=== PATIENT | male | born 1960 | race Caucasian/White ===

== ENCOUNTER 2017-02-28 14:18 | Inpatient (IN) ==
[~2017-02-28 14:18] MED LIST: PROPOFOL 200 MG/20 ML VIAL IV ONE; ROCURONIUM 100 MG/10 ML VIAL IV ONE
[2017-02-28] MEDS ORDERED: SODIUM CHLORIDE 0.9% 1,000 ML IV STA ×3 (14:20→15:20)
[2017-02-28] MEDS ORDERED: ETOMIDATE 20 MG/10 ML VIAL IV ONE ×2 (14:23→16:40)
[2017-02-28] MEDS ORDERED: VECURONIUM 10 MG VIAL IV ONE ×4 (14:24→16:40)
[2017-02-28] MEDS ORDERED: PROPOFOL 1,000 MG/100 ML BOTTLE IV ONE (14:28)
[2017-02-28] MEDS ORDERED: SUCCINYLCHOLINE 200 MG/10 ML VIAL IV ONE (14:28)
[2017-02-28] MEDS ORDERED: PANTOPRAZOLE 40 MG VIAL IV ONE (14:29)
[2017-02-28] MEDS: PROPOFOL 1,000 MG/100 ML BOTTLE IV SCH ×3 (14:35→22:02)
--- NOTE | 2017-02-28 14:50 | XRay Report ---
XR chest 1V Indication: ET tube placement Comparison: None Technique: Single frontal view of the chest. Findings: Endotracheal tube tip approximately 2 cm above the radu. Borderline heart size. Low lung volumes with bronchovascular crowding. Mild linear left midlung atelectasis. Visualized osseous and surrounding soft tissue structures demonstrate no acute abnormality. IMPRESSION: As above. PROCEDURE INTERPRETED AT [facility] DEPARTMENT OF RADIOLOGY Final Report Signed by: Dr Shmuel Pulido
[2017-02-28] MEDS ORDERED: CALCIUM CHLORIDE 1,000 MG/10 ML SYRINGE IV STA (15:04)
--- NOTE | 2017-02-28 15:04 | Emergency Department Note ---
Luly Ferro Hilary, am scribing for, and in the presence of, Andi Chatman MD 14: 57. Lurdes Ferro James D, MD, personally performed the services described in this documentation, ascribed by Yamilex Mauricio in my presence, and it is both accurate and complete 504 . Arrival - Arrival Limitations: No Limitations Source: Significant other (), EMS - History of Present Illness HPI Narrative: Pt is a 56 y/o male brought into the ED via EMS with c/o syncope and low blood pressure. Pts gives the history once the patient was intubated. She states that he has been having sinus trouble for about a week and felt so bad today that he decided to go to the Dr. While at the Dr he fell out while talking and became unresponsive. Once he was in the ED being brought to his room he started to vomit blood. Pt was extremely diaphoretic and lethargic upon arrival. Onset (ago): minute(s) Severity: severe Quality: other Allergies/Adverse Reactions: Allergies Allergy/AdvReac Type Severity Reaction Status Date / Time No Known Allergies Allergy Unverified 02/28/17 14:50 Home Medications: Home Medications Medication Instructions Recorded Confirmed Type No Known Home Medications [No 02/28/17 02/28/17 History Known Home Medications] Review of System - Review of System ROS unobtainable: due to endotracheal tube (Vomiting blood) 12 point system: reviewed and no additional remarkable complaints except as stated - Review of System Constitutional: Present: diaphoresis, other (Pale) Medical,Surgical,& Family Hx - Social History Smoking Status: Never smoker Frequency of Alcohol Use: None Type of Drug Use: None Marital Status: Lives With:: Spouse Functional capacity: independent ambulation Exam Vital Signs: Vital Signs Temperature 99.1 F 03/01/17 08:00 Pulse Rate 61 03/01/17 09:00 Respiratory Rate 15 03/01/17 13:00 Blood Pressure 113/78 03/01/17 09:00 O2 Sat by Pulse Oximetry 96 03/01/17 09:00 GENERAL: This is a this acutely ill appearing white male was placed on the gurney in room 8 after presentation from EMS. Patient is in extremis. Patient arrived by EMS from the scene of a local clinic where patient had a syncopal episode and was noted to be hypotensive. EMS had begun dopamine in route. And also began IV fluids. VITAL SIGNS: Reviewed HEENT: Head is atraumatic normocephalic. Pupils are equal round to light. Conjunctiva are pale. Blood is present in the oropharynx. Blood is present on the gurney around his head. NECK: Neck is soft and supple without tenderness. There are no masses. There is no lymphadenopathy. LUNGS: Lungs are clear to auscultation. Chest rises symmetrically. There is no chest wall tenderness. CV: Rapid rate regular rhythm. ABDOMEN: Abdomen is soft, nontender to palpation. There are no abdominal abnormal masses palpated. There is no organomegaly. Bowel sounds are present and active. SKIN: Diaphoretic, cool to touch.. EXTREMITIES: Patient moves all extremities.. NEUROLOGIC: Awake alert and oriented 4. Cranial nerves II through XII are grossly intact. Motor is 5 over 5 in all extremities bilaterally. Course Course Narrative: Upon patient's arrival he was placed on the rcedar hill and IVs were obtained. Patient was immediately given etomidate and vecuronium and intubated with an 8.0 endotracheal tube. Tube placement was confirmed by auscultation, condensation in the tube, color change monitor, and absence of breath sounds over epigastrium. Patient was begun on massive IV fluid infusion. O- blood was obtained and was given by level 1 infuser. Patient had trauma line placed in the right femoral vein without difficulty. Patient was also given 1 amp of calcium chloride and 1 unit of single donor platelets. - Consultations Consultation #1: Discussed with hospitalist. Patient will be admitted to their service. Procedures - Central Line Placement Right Femoral Consent Obtained: verbal consent Time Out Performed: Yes Patient Placed on Monitor/Pulse Ox: Yes MD Prep: mask, gown, gloves Central Line Prep: Povidone-Iodine 1% Local Anesthetic: lidocaine 1% Amount of anesthesia used (mL): 4 Ultrasound Used for Placement: No Central Line Lumen Inserted: triple Post Procedure: sutured in place, good blood return, all ports aspirated, flushed, capped, sterile dressing applied Post Procedure X-Ray: tip of catheter in good position Patient Tolerated Procedure: well Complications: none - Intubation Time out performed: Yes sedative: Etomidate Mg Given: 20 paralytic: Vecuronium Mg Given: 10 (Patient was also given succinylcholine 200 mg IV) Laryngoscope: fiber optic video scope ET Tube Size: 8 ET Tube Uncuffed: No Tube Secured Depth (cm): 24 Tube Secured Location: lips Tube Placement Confirmation: visualized tube passing through cords, equal breath sounds bilaterally, no breath sounds over epigastrium, confirmation detector color change Patient Tolerated Procedure: well Intubation Complications: none Results - Labs CBC & BMP: 03/01/17 04:45 02/28/17 14:59 Lab Results: I have reviewed the patients labs Labs: Laboratory Tests 02/28/17 15:00 ABG pH 7.319 L ABG pO2 186.7 H ABG HCO3 18.8 L ABG Total CO2 19.9 L ABG Base Excess -6.6 L - EKG EKG results: interpreted by ERMD - Diagnostic Findings Procedure: Abdominal x-ray: image reviewed by me, Chest x-ray: image reviewed by me (Chest x-ray reveals endotracheal tube at the tip of the radu. This will be retracted.) Critical Care Time Critical Care Time: Yes Total Critical Care Time: 90 Attestation: Patient had intubation massive transfusions of 4 units of packed red blood cells , calcium chloride IV, 4 units of FFP, single donor platelets in the emergency department. Patient also had initial vent settings written and his vent was managed while in the emergency department. Disposition Clinical Impression: Massive upper GI bleed, Hypovolemic shock Case discussed with: patient, patient's family Disposition: Still a Patient Time of Disposition: 15:04
[2017-02-28] MEDS ORDERED: SODIUM CHLORIDE 0.9% 250 ML IV PRN ×2 (15:05)
[2017-02-28 15:09] LABS: Allen Test Positive; Pt O2 Delivery Device Ventilator
[2017-02-28 15:10] LABS: ABG Base Excess -6.6 MMOL/L (-2.5-2.5); ABG HCO3 18.8 MMOL/L (20-26); ABG Oxygen Saturation 98.9 % (95-100); ABG PCO2 37.4 MM HG (35-48); ABG PH 7.319 (7.35-7.45); ABG PO2 186.7 MM HG (80-95); ABG TCO2 19.9 MMOL/L (23-27)
[2017-02-28] MEDS ORDERED: PANTOPRAZOLE INJ 80 MG in SODIUM CHLORIDE 0.9% 100 ML IV ONE (15:11)
[2017-02-28] MEDS ORDERED: CALCIUM CHLORIDE 1,000 MG/10 ML SYRINGE IV ONE (15:12)
[2017-02-28] MEDS ORDERED: MIDAZOLAM 100 MG in SODIUM CHLORIDE 0.9% 80 ML IV SCH (15:30)
--- NOTE | 2017-02-28 15:53 | Hospitalist History & Physical ---
Assessment and Plan - Time spent with patient Time spent with patient: Less than 30 minutes (1) Hypovolemic shock Status: Acute Assessment and plan: The patient will be admitted to ICU. We will consult pulmonary and GI to assist during the clinical encounter. We will volume resuscitate this patient with fluids and blood products. Current Visit: Yes (2) Upper GI bleed Status: Acute Assessment and plan: Hemoglobin and hematocrit are stable at 14.8 and 40.7, however I feel that due to the massive amount of blood loss during the episodes of vomiting that this will drop. He has already been transfused 2 units of PRBCs and 1 unit of platelets in the ED. we will obtain serial H&H's every 63 and transfuse as needed. We have started PPIs and DVT prophylaxis. Current Visit: Yes History of Present Illness Chief complaint: Syncope and hypotension History of present illness: This is a 56-year-old male that presented to the ED at [facility] on this afternoon via EMS for evaluation of hypotension and syncope. The patient has no known medical or surgical history reported. Apparently the patient presented to his primary care physician for evaluation of cold and sinus symptoms 1 week. He was sitting in the waiting room preparing to be seen when he suddenly passed out. The episode was witnessed by the office staff who then in turn called 911 for emergency assistance. At the time of EMS arrival, the patient was noted to be diaphoretic in both hypotensive. Dopamine was started in route to support his blood pressure. Upon arrival to the ED, the patient had a large episode of bloody emesis. He was noted to be very lethargic and his hypotension persisted despite the use of dopamine. He was emergently intubated and placed on mechanical ventilation for airway protection. His is at bedside; she was serve as historian. His reports that the patient is normally very healthy, does not take any medications, and does not see a doctor on a regular basis. She reports that the patient had an onset of upper respiratory symptoms on last week. She reports that he attempted to self medicate himself using an over the counter agent, Mucinex. She reports that she saw him on this morning and that he told her that he was feeling slightly better. She reports that she encouraged him to seek medical attention, however at that time he refused. Shortly thereafter, she reports that that her called her at work and told her that he had changed his mind and that he would indeed go and see a doctor. She reports that she was actually speaking with him while he was in the doctor's appointment and that he was his normal state at that time. Shortly thereafter the syncopal episode, she was notified by the staff of her status and she came to the hospital. His denies any alcohol or illicit drug use. She denies any recent aspirin or products containing aspirin use. After brief discussion with Dr. Chatman and Dr. Levin, the patient will be admitted to the hospitalist services for continuation of care. We will consult GI and pulmonary to assist during the clinical encounter. Home Medications Medication Instructions Recorded Confirmed Type No Known Home Medications [No 02/28/17 02/28/17 History Known Home Medications] Allergies Allergy/AdvReac Type Severity Reaction Status Date / Time No Known Allergies Allergy Unverified 02/28/17 14:50 Medical,Surgical,& Family Hx - Social History Smoking Status: Never smoker Frequency of Alcohol Use: None Type of Drug Use: None ROS unobtainable: due to endotracheal tube Exam - Constitutional Vitals: Period Temp Pulse Resp BP Sys/Rueda Pulse Ox Last 24 Hr 97.5 F 62 14-20 120/85 97 General appearance: over weight - Head Head exam: Present: normal inspection, normocephalic, atraumatic - Eye Eye exam: Present: EOMI. Absent: conjunctival injection, nystagmus Pupils: Present: DEANN, normal accommodation - ENT ENT exam: Present: normal exam, normal external ear exam, normal oropharynx - Neck Neck exam: Present: normal inspection. Absent: lymphadenopathy, meningismus, tenderness, thyromegaly - Respiratory Respiratory exam: Absent: clear to auscultation bilaterally, rales, rhonchi, stridor, wheezes - Cardiovascular Cardiovascular exam: Present: regular rate and rhythm. Absent: carotid bruit, diastolic murmur, gallop, JVD, rubs, systolic murmur - GI/Abdominal GI/Abdominal exam: Present: normal bowel sounds, soft, other (NG tube in place) - Extremities Exam Extremities exam: Present: normal inspection, normal capillary refill, full ROM. Absent: edema - Back Exam Back exam: Present: normal inspection - Neurological Exam Neurological exam: Present: altered - Psychiatric Psychiatric exam: Present: other (sedated) - Skin Skin exam: Present: warm, dry Results - Labs CBC & BMP: 02/28/17 14:59 02/28/17 14:59 Lab Results: I have reviewed the past 24 hour labs
--- NOTE | 2017-02-28 16:03 | Gastrointestinal Consult Note ---
Assessment and Plan (1) Upper GI bleed Status: Acute Assessment and plan: 02/28-Sudden onset of bright red emesis with hypotenstion requiring intubation. Total of 3 liters IVFs, and 4 units PRBC transfused with further plasma/ platlets pending. Labwork is pending at present time. For emergent EGD today. Plan and addendum to follow by Dr Castro. Current Visit: Yes History of Present Illness Chief complaint: Upper GI bleed History of present illness: Mr. Mac is a 56 year old male who is being admitted to the hospital with upper GI bleed. Pt is sedated on the ventilator at this time however is at bedside and able to provide history. Pt is reported over the last several days to have onset of some sinus infection symptoms. Pt states he has been treating this with OTC medications however he was not getting better therefore she took him to the doctors office today. Pt does not followup regularly with a PCP and has no routine care however he is reported to be "very healthy". While signing in at the clinic, he became weak and passed out. When EMS arrived, he was hypotensive and give Dopamine in transit. Upon arriving at the ER, he began vomiting a large amount of bright red blood, approximately a total of 600- 700cc. He was intubated and sedated. He is reported to have not felt well the last several days and having a drop in his appetite. He has reportedly passed some dark stools this week as well but no complaints of abdominal pain, nausea or vomiting. He has had no recent weight loss. No fever, chills. He has no upper GI symptoms. No history of NSAID use or anticoagulants. He has never had a GI bleed in the past. He has had no prior endoscopy in the past. He has had a total of 4 units of PRBC and 3 liters of IVF since admission. He also has 4 units of plasma and platelets pending at this time. No labwork is available at present time. Dr Castro has discussed case with patients and GI lab has been contacted to return for emergency EGD. Home Medications Medication Instructions Recorded Confirmed Type No Known Home Medications [No 02/28/17 02/28/17 History Known Home Medications] Allergies Allergy/AdvReac Type Severity Reaction Status Date / Time No Known Allergies Allergy Unverified 02/28/17 14:50 Medical,Surgical,& Family Hx - Social History Smoking Status: Never smoker Frequency of Alcohol Use: None Type of Drug Use: None ROS unobtainable: due to endotracheal tube Exam - Constitutional Vitals: Period Temp Pulse Resp BP Sys/Rueda Pulse Ox Last 24 Hr 97.5 F 62 14-20 120/85 97 General appearance: normal weight, no acute distress - Head Head exam: Present: normal inspection, normocephalic - Eye Eye exam: Present: other (lids and conjunctiva unremarkable). Absent: scleral icterus - ENT ENT exam: Present: normal exam, normal oropharynx - Neck Neck exam: Present: normal inspection - Respiratory Respiratory exam: Present: clear to auscultation bilaterally. Absent: rales, rhonchi, wheezes - Cardiovascular Cardiovascular exam: Present: regular rate and rhythm. Absent: diastolic murmur , JVD, systolic murmur - GI/Abdominal GI/Abdominal exam: Present: normal bowel sounds, soft. Absent: ascites, distended, mass, organomegaly, tenderness - Extremities Exam Extremities exam: Present: normal inspection - Back Exam Back exam: Present: normal inspection - Neurological Exam Neurological exam: Present: altered - Psychiatric Psychiatric exam: Present: other - Skin Skin exam: Present: normal color, warm
[2017-02-28 16:06] LABS: Basophils # 0.1 10*3/uL (0.0-0.2); Basophils % 0.6 % (0.0-0.8); Eosinophils # 0.2 10*3/uL (0.0-0.87); Eosinophils % 1.3 % (0.00-10.9); Hematocrit 40.7 VOL% (42.0-52.0); Hemoglobin 14.8 GM/DL (14.0-18.0); Immature Granulocytes % 1.1 %; Immature Granulocytes Absolute 0.18 #; Lymphocytes # 4.8 10*3/uL (1.4-4.0); Lymphocytes % 29.7 % (21.2-54.2); Mean Corpuscular HGB Conc 36.4 GM/DL (32-36); Mean Corpuscular Hemoglobin 32 PG (27-34); Mean Corpuscular Volume 89.1 FL (87-102); Mean Platelet Volume 10.3 FL (9.6-12.0); Monocytes # 1.4 10*3/uL (0.11-0.8); Monocytes % 8.8 % (1.7-12.7); Neutrophils # 9.4 10*3/uL (1.4-7.4); Neutrophils % 58.5 % (38.7-73.9); Platelet Count 407 T/CUMM (130-400); Red Blood Count 4.57 MC/CUMM (3.8-5.5); White Blood Count 16.1 T/CUMM (4-12)
[2017-02-28 16:12] LABS: PT Patient Result 10.3 SECS; Partial Thromboplastin Time 25.5 SECS (0-40)
[2017-02-28 16:21] LABS: Alanine Aminotransferase 21 U/L (16-61); Albumin 3.5 G/DL (3.4-5.0); Alkaline Phosphatase 55 U/L (45-117); Aspartate Amino Transferase 14 U/L (0-37); Blood Urea Nitrogen 19 MG/DL (7-18); Glucose 180 MG/DL (74-106); Magnesium 2.1 MG/DL (1.8-2.4); Osmolality,Calculated 285.4 MOS/KG (273-304); Potassium 3.5 MMOL/L (3.5-5.1); Sodium 140 MMOL/L (136-145); Total Protein 6.6 G/DL (6.4-8.3); Troponin I Only < 0.015 NG/ML (0.00-0.045)
[2017-02-28] MEDS ORDERED: SUCCINYLCHOLINE 200 MG/10 ML VIAL ONE (16:40)
--- NOTE | 2017-02-28 17:15 | History and Physical Update ---
History and Physical Update - History and Physical H&P was reviewed, the patient examined and there: are no changes in the patients condition since last H&P was completed. - Physical Exam Mental Status: alert and oriented Heart: regular rate and rhythm Lung: clear to auscultation Abdomen: within normal limits Vitals: within normal limits
[2017-02-28] MEDS ORDERED: MIDAZOLAM 2 MG/2 ML VIAL ONE (17:25)
--- NOTE | 2017-02-28 17:39 | Operative Note ---
Date of procedure: 02/28/17 Pre-op diagnosis: upper GI bleed Procedure: Procedure: Esophagogastroduodenoscopy Brief clinical abstract: Patient is a 56-year-old male who was brought by ambulance to the emergency room today after syncopal episode this afternoon. He had hematemesis and maroon blood per rectum shortly thereafter. He had severe hypotension initially and has been resuscitated with IV fluids and 4 units packed red blood cells. Indication for procedure: Upper GI bleeding Endoscopic findings:[After informed consent was obtained, the patient was placed in the left lateral decubitus position. The gastroscope was inserted in the upper esophagus under direct vision with no resistance encountered. Esophageal mucosa appeared normal with squamocolumnar junction sharply demarcated at the diaphragmatic indentation. The endoscope was advanced in the stomach which was carefully examined including retroflexed view of the cardia and fundus. There was a fairly large amount of old dark red clot in the proximal stomach. No lesions were noted in the distal portion of the stomach. The pyloric channel, duodenal bulb, second and third portion of the duodenum had normal appearance. The standard gastroscope was withdrawn and then double- channel therapeutic gastroscope was advanced down into the stomach. The area of clot in the proximal stomach was suctioned. Patient had a submucosal appearing mass in the proximal fundus estimated to be 3-4 cm in diameter. There was an approximately 1 cm area of ulceration noted on the central portion of this facing into the lumen with a prominent visible vessel which was not bleeding. I did not feel any endoscopic therapy was indicated. The endoscope was withdrawn and patient appeared to tolerate the procedure well. 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 Discussed with Dr. Dunham of general surgery who will see patient today. submucosal mass----------------------------------> Fvisible vessel----------------------------------------> Fretroflex view in proximal fundus, stomach----------------> F Anesthesia: GETA Surgeon / Physician: Ted Castro Estimated blood loss: minimal Specimens: none sent Condition: stable Disposition: post procedure unit Results - Labs CBC & BMP: 02/28/17 14:59 02/28/17 14:59 Discharge Plan - Discharge Medications No Action No Known Home Medications [No Known Home Medications] - Follow Up or Referral - Forms/Instructions
[2017-02-28] MEDS: PANTOPRAZOLE INJ 200 MG in SODIUM CHLORIDE 0.9% 250 ML IV SCH (18:01)
[2017-02-28 18:35] LABS: Ammonia 36 UMOL/L (11-32)
--- NOTE | 2017-02-28 19:03 | General Surgery Consult Note ---
Assessment and Plan (1) Upper GI bleed Status: Acute Assessment and plan: This patient has upper GI bleed from a gastric submucosal mass with features consistent with gastrointestinal stromal tumor. There is a visible vessel at the base of the mass. There is no active bleeding right now. I have recommended a resection of this mass during the hospital stay to prevent recurrent bleeding and also for diagnostic purposes and curative purposes to remove this mass. Based on the endoscopic pictures and discussion with Dr. Castro, I feel that a wedge resection will likely be the best treatment option but I have discussed the possibility of a subtotal gastrectomy or total gastrectomy with the patient's family at the bedside. The patient is very stable now so we will plan to do this tomorrow as there is no evidence of active bleeding. If anything changes tonight we will do more emergently but I think it will work well to have this done tomorrow if he remains stable. Current Visit: Yes History of Present Illness Chief complaint: Syncope with gastrointestinal bleeding History of present illness: Mr. Mac is a 56 year old male who presented to his primary care provider today for some sinus symptoms and collapsed in the waiting room. He was found to be hypotensive and unresponsive by EMS and was brought to the ER. He had a couple episodes of hematemesis in the ER and was emergently intubated to protect his airway. EGD reveals a 3 cm lesion on the greater curvature/fundus region of the stomach with a visible vessel but no active bleeding. Patient was placed on a Protonix infusion and transferred to the ICU but he has been very stable after receiving crystalloid and 4 units of packed red blood cells as well as 1 unit of platelets in the ER. His hemoglobin after this was 14. He has never had problems with GI bleeding before. Home Medications Medication Instructions Recorded Confirmed Type No Known Home Medications [No 02/28/17 02/28/17 History Known Home Medications] Allergies Allergy/AdvReac Type Severity Reaction Status Date / Time No Known Allergies Allergy Unverified 02/28/17 14:50 Medical,Surgical,& Family Hx - Surgical History Neurologic Surgeries: Patient denies: Neurologic Surgery HEENT Surgeries: Surgical HX of: Tonsilectomy & Adenoidectomy - Social History Smoking Status: Never smoker Frequency of Alcohol Use: None Type of Drug Use: None - Constitutional Constitutional: Present: as per HPI - EENT Nose, mouth and throat: Present: as per HPI - Cardiovascular Cardiovascular: Present: as per HPI - Respiratory Respiratory: Present: as per HPI - Gastrointestinal Gastrointestinal: Present: as per HPI - Genitourinary Genitourinary: Present: as per HPI - Musculoskeletal Musculoskeletal: Present: as per HPI - Neurological Neurological: Present: as per HPI - Endocrine Endocrine: Present: as per HPI Hematologic/Lymphatic: Present: as per HPI Exam - Constitutional Vitals: Period Temp Pulse Resp BP Sys/Rueda Pulse Ox Last 24 Hr 97.2 F-97.5 F 58-76 12-21 98-132/70-85 97-100 General appearance: no acute distress, over weight - Head Head exam: Present: normal inspection, normocephalic - Eye Eye exam: Present: EOMI Pupils: Present: DEANN - ENT ENT exam: Present: normal exam Mouth exam: Present: normal external inspection - Neck Neck exam: Present: normal inspection, trachea midline - Respiratory Respiratory exam: Present: clear to auscultation bilaterally. Absent: accessory muscle use, chest wall tenderness - Cardiovascular Cardiovascular exam: Present: RRR. Absent: systolic murmur, tachycardia - GI/Abdominal GI/Abdominal exam: Present: normal bowel sounds, soft. Absent: tenderness, rebound - Extremities Exam Extremities exam: Present: normal inspection, normal capillary refill - Back Exam Back exam: Present: normal inspection - Neurological Exam Neurological exam: Present: alert, oriented X3 Speech: Present: normal - Skin Skin exam: Present: normal color, warm Quality Measures - VTE Contraindication to Pharmacological VTE Prophylaxis: Active Bleeding Results - Labs CBC & BMP: 02/28/17 14:59 02/28/17 14:59
[2017-02-28] MEDS: SODIUM CHLORIDE 0.9% 1,000 ML IV SCH (22:06)
[2017-02-28 23:00] LABS: Hematocrit 42.5 VOL% (42.0-52.0)
[2017-03-01] MEDS: PROPOFOL 1,000 MG/100 ML BOTTLE IV SCH ×5 (01:46→20:44)
[2017-03-01] MEDS: SODIUM CHLORIDE 0.9% 1,000 ML IV SCH ×3 (02:14→19:54)
[2017-03-01 03:56] LABS: Allen Test Positive; Pt O2 Delivery Device Ventilator
[2017-03-01 03:57] LABS: ABG HCO3 20.2 MMOL/L (20-26); ABG Oxygen Saturation 99.3 % (95-100); ABG PCO2 25.8 MM HG (35-48); ABG PH 7.512 (7.35-7.45); ABG PO2 320.1 MM HG (80-95)
[2017-03-01 05:30] LABS: Hematocrit 41.3 VOL% (42.0-52.0); Hemoglobin 14.3 GM/DL (14.0-18.0)
--- NOTE | 2017-03-01 06:14 | XRay Report ---
XR chest 1V portable Indication: Intubation Comparison: Chest x-ray 02/28/2017 Technique: Portable AP chest was performed. Findings: The heart size appears within normal limits. Endotracheal tube is unchanged. NG tube may have been removed. Pulmonary vasculature demonstrates no specific abnormality. Hilar structures demonstrate fairly symmetric appearance. minimal stranding in the left costophrenic angle suggests atelectasis. Lungs otherwise are clear. Bones and soft tissues demonstrate no evidence of acute pathology. Impression: 1. Minimal atelectasis left lung base is suggested. Lungs otherwise are clear. 03/01/2017 6:11 AM PROCEDURE INTERPRETED AT [facility] DEPARTMENT OF RADIOLOGY Final Report Signed by: Dr. Floyd Holguin
--- NOTE | 2017-03-01 06:54 | Pulmonology Consult Note ---
Assessment and Plan (1) Acute respiratory failure Status: Acute Assessment and plan: Presently on ventilator as he was intubated to protect his airway during his GI bleeding and endoscopy. He is going to surgery this morning. Will wean after surgery. Should be able to be weaned without difficulty. He does not have any known underlying heart or lung problems. Current Visit: Yes (2) Hypovolemic shock Status: Acute Assessment and plan: This is been corrected with transfusions. 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 For gastric surgery today. Current Visit: Yes History of Present Illness Chief complaint: GI bleed History of present illness: Mr. Mac is a 56 year old male started spontaneously vomiting fluid sitting in a doctor's office yesterday. He was emergently admitted, transfused, and taken for gastroscopy yesterday. 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 There was a visible vessel on top of that that was treated by GI. Presently is not GI bleeding. He has been on the ventilator overnight. He is going to surgery this morning. We will not try to wean him off the ventilator as yet. He has no previous history of medical problems and was not on any medications at home. He has a clear chest x-ray and his ABGs look good. Should be able to wean him postop fairly quickly. Home Medications Medication Instructions Recorded Confirmed Type No Known Home Medications [No 02/28/17 02/28/17 History Known Home Medications] Allergies Allergy/AdvReac Type Severity Reaction Status Date / Time No Known Allergies Allergy Unverified 02/28/17 14:50 ROS unobtainable: due to endotracheal tube Exam (Pulmonay) H&P - Constitutional Vitals: Period Temp Pulse Resp BP Sys/Rueda Pulse Ox Last 24 Hr 97.2 F-98.7 F 57-76 12-21 95-132/61-87 95-100 Exam: Vital signs normal. Pupils react to light. Patient is sedated. Orotracheal tube in place. Neck supple. Chest clear equal breath sounds. Heart normal rate rhythm no murmurs. Abdomen soft nontender no masses. Extremities no clubbing cyanosis or edema. Calves nontender. Medical,Surgical,& Family Hx - Surgical History Neurologic Surgeries: Patient denies: Neurologic Surgery HEENT Surgeries: Surgical HX of: Tonsilectomy & Adenoidectomy - Social History Smoking Status: Never smoker Frequency of Alcohol Use: None Type of Drug Use: None Results - Labs CBC & BMP: 03/01/17 04:45 02/28/17 14:59 Lab Results: I have reviewed the past 24 hour labs - Diagnostic Findings Procedure: Chest x-ray: image reviewed by me (ET tube good position. No infiltrates.) Quality Measures - VTE Contraindication to Pharmacological VTE Prophylaxis: Active Bleeding
[2017-03-01 07:30] LABS: Allen Test Positive; Pt O2 Delivery Device Ventilator
--- NOTE | 2017-03-01 07:30 | EKG Report ---
Stationary ECG Study [facility] Test Date: 03/01/2017 7:22:08 AM Pat Name: PRASANNA LEOS Department: Room: 123 Gender: M Health Insurance Adjuster: MENDEZ : 1960 Requested by: Sanjeev Redmond Order Number: [id number] Reading MD: TYLER TRAVIS Intervals [place] Rate: 60 P: 46 OH: 139 QRS: 25 QRSD: 97 T: 51 QT: 428 QTc: 429 Interpretive Statements SINUS RHYTHM NONSPECIFIC T-WAVE ABNORMALITY Electronically Signed On 03-01-17 09:11:22 CDT by TYLER TRAVIS [email or web address]
[2017-03-01 07:33] LABS: ABG Base Excess -0.8 MMOL/L (-2.5-2.5); ABG HCO3 20.6 MMOL/L (20-26); ABG Oxygen Saturation 97.6 % (95-100); ABG PCO2 26.5 MM HG (35-48); ABG PH 7.509 (7.35-7.45); ABG PO2 94.1 MM HG (80-95); ABG TCO2 21.4 MMOL/L (23-27)
--- NOTE | 2017-03-01 07:58 | General Surgery Progress Note ---
Assessment and Plan (1) Upper GI bleed Status: Acute Assessment and plan: This patient has been stable overnight. Plan for robotic assisted laparoscopic gastric resection with possible endoscopy today. Current Visit: Yes Subjective Patient reports: Present: no new complaints, afebrile Exam - Constitutional Vitals: Period Temp Pulse Resp BP Sys/Rueda Pulse Ox Last 24 Hr 97.2 F-98.7 F 57-76 12-21 95-132/61-87 95-100 General appearance: no acute distress, over weight - Head Head exam: Present: normal inspection, normocephalic - Eye Eye exam: Present: EOMI Pupils: Present: DEANN - ENT ENT exam: Present: normal exam Mouth exam: Present: normal external inspection - Neck Neck exam: Present: normal inspection, trachea midline - Respiratory Respiratory exam: Present: clear to auscultation bilaterally. Absent: accessory muscle use, chest wall tenderness - Cardiovascular Cardiovascular exam: Present: RRR. Absent: systolic murmur, tachycardia - GI/Abdominal GI/Abdominal exam: Present: soft. Absent: tenderness, rebound - Extremities Exam Extremities exam: Present: normal inspection, normal capillary refill - Back Exam Back exam: Present: normal inspection - Neurological Exam Neurological exam: Present: alert - Skin Skin exam: Present: normal color, warm Results - Labs CBC & BMP: 03/01/17 04:45 02/28/17 14:59 Quality Measures - VTE Contraindication to Pharmacological VTE Prophylaxis: Active Bleeding
--- NOTE | 2017-03-01 08:45 | Gastrointestinal Progress Note ---
Assessment and Plan (1) Upper GI bleed Status: Acute Assessment and plan: 03/01-hemoglobin stable at 14.3. No further hematemesis. FOr gastric resection this morning with Dr. Dunham. Plan an addendum to followed by Dr. Castro. 02/28-Sudden onset of bright red emesis with hypotenstion requiring intubation. Total of 3 liters IVFs, and 4 units PRBC transfused with further plasma/ platlets pending. Labwork is pending at present time. For emergent EGD today. Plan and addendum to follow by Dr Castro. Current Visit: Yes Gastroenterology - PN: Subj Interval history: CC: Hematemesis Patient is seen on the ventilator, however awake with family at side. Findings on EGD of stromal tumor noted on yesterday. He is preparING to go for surgery this morning with Dr. Dunham for laparoscopic gastric resection. He has had no further bleeding throughout the night. Hemoglobin remained stable at 14. Abdomen is soft, nontender. ROS: No acute distress noted. Exam (Progress Note) - Constitutional Vitals: Period Temp Pulse Resp BP Sys/Rueda Pulse Ox Last 24 Hr 97.2 F-98.7 F 57-76 12-21 95-132/61-87 95-100 General appearance: normal weight, no acute distress - Head Head exam: Present: normal inspection, normocephalic - Eye Eye exam: Present: other (Lids and conjunctive are unremarkable). Absent: scleral icterus - ENT ENT exam: Present: normal exam, normal oropharynx - Neck Neck exam: Present: normal inspection - Respiratory Respiratory exam: Present: clear to auscultation bilaterally. Absent: rales, rhonchi, wheezes - Cardiovascular Cardiovascular exam: Present: regular rate and rhythm. Absent: diastolic murmur , JVD, systolic murmur - GI/Abdominal GI/Abdominal exam: Present: normal bowel sounds, soft. Absent: ascites, distended, mass, organomegaly, tenderness - Extremities Exam Extremities exam: Present: normal inspection, full ROM - Back Exam Back exam: Present: normal inspection - Neurological Exam Neurological exam: Present: alert, altered - Psychiatric Psychiatric exam: Present: other (On the ventilator, mild sedation) - Skin Skin exam: Present: normal color, warm, dry Results - Labs CBC & BMP: 03/01/17 04:45 02/28/17 14:59 Lab Results: I have reviewed the past 24 hour labs
--- NOTE | 2017-03-01 09:17 | Physician Query Form ---
CLICK EDIT DOCUMENT TO SELECT QUERY ANSWER --> OK --> SIGN Yvonne Holguin RN, CCDS Certified Clinical Repacker W) [phone] (f) [phone] [email or web address]: Make your selection(s) from the choices in EACH section by typing an "x" and enter comments in the comment section. Please use your independent medical judgment in providing your response. This request does not imply that any particular answer is desired or expected. CLINICAL INDICATORS: (Providers should not edit this section) The medical record indicates that the patient was admitted with massive upper GI bleeding, HH has remained stable, "vomiting a large amount of bright red blood, approximately a total of 600-700cc" and the patient was given four units of blood, 2 of plasma. Based on the above, could you clarify which of the following conditions you are evaluating, treating, and/or monitoring? (x) Blood loss anemia ( x) acute ( ) chronic ( ) acute on chronic ( ) Acute blood loss anemia on baseline chronic anemia ( ) Acute blood loss anemia as a complication of a procedure ( ) Iron deficiency anemia not associated with blood loss ( ) Dilutional anemia due to IV fluids ( ) Anemia due to chemotherapy ( ) Anemia due to neoplastic disease ( ) Anemia due to chronic kidney disease ( ) Pernicious anemia ( ) Aplastic anemia ( ) Hemolytic anemia ( ) immune ( ) non-immune - please specify cause: ( ) Anemia due to other condition, please specify: ( ) Clinically unable to determine COMMENTS: PLEASE ALSO DOCUMENT RESPONSE IN PROGRESS NOTES AND/OR DISCHARGE SUMMARY Use of terms such as suspected, likely, or probable (associated with a specific diagnosis that is being evaluated, monitored, or treated as if it exists) are acceptable and can be restated in the discharge summary if not ruled out. MTDD
[2017-03-01] MEDS ORDERED: PROPOFOL 200 MG/20 ML VIAL IV ONE (09:50)
[2017-03-01] MEDS ORDERED: ROCURONIUM 100 MG/10 ML VIAL IV ONE (09:50)
--- NOTE | 2017-03-01 10:07 | Hospitalist Progress Note ---
Assessment and Plan (1) Upper GI bleed Status: Acute Assessment and plan: 1)UGIB from visible vessel on surface of tumor in stomach- to OR today for resection. No more bleeding. He was aggressively resuscitated in the ER and has had normal blood pressure since I saw him there yesterday. He has not required more transfusion. He got 4 U PRBCs, platelets, and FFP in ER along with 3 L NS. UOP good. Plan is to extubate after surgery. No anticoagulation for now. SCDs. Protonix. Current Visit: Yes (2) Hypovolemic shock Status: Resolved Current Visit: Yes (3) Acute respiratory failure Status: Acute Current Visit: Yes Hospitalist: Subjective Interval history: Mr Mac was stable overnight without any sign of further bleeding. He is going to the OR this mornign for resection of tumor and control of bleeding. Family was at the bedside, they had no questions for me- Dr Dunham and Matthew had answered them all. Exam - Constitutional Vitals: Period Temp Pulse Resp BP Sys/Rueda Pulse Ox Last 24 Hr 97.2 F-98.7 F 57-76 12-21 95-132/61-87 95-100 General appearance: no acute distress, over weight - Head Head exam: Present: normocephalic, atraumatic - Eye Eye exam: Present: EOMI. Absent: scleral icterus - Respiratory Respiratory exam: Present: clear to auscultation bilaterally - Cardiovascular Cardiovascular exam: Present: regular rate and rhythm - GI/Abdominal GI/Abdominal exam: Present: normal bowel sounds, soft - Extremities Exam Extremities exam: Absent: edema - Neurological Exam Neurological exam: Present: alert, oriented X3 (sedation minimized, nodding and shaking head to answer questions, follows commands. ) - Skin Skin exam: Present: warm, dry Results - Labs CBC & BMP: 03/01/17 04:45 02/28/17 14:59 Lab Results: I have reviewed the past 24 hour labs Quality Measures - VTE Contraindication to Pharmacological VTE Prophylaxis: Active Bleeding
[2017-03-01] MEDS ORDERED: TISSUE ADHESIVE 1 EACH APPLICATOR TOP ONE (10:45)
--- NOTE | 2017-03-01 12:15 | History and Physical Update ---
History and Physical Update - History and Physical H&P was reviewed, the patient examined and there: are no changes in the patients condition since last H&P was completed. - Physical Exam Mental Status: other (Sedated) Heart: regular rate and rhythm Lung: clear to auscultation Abdomen: within normal limits Vitals: within normal limits
[2017-03-01] MEDS ORDERED: MIDAZOLAM 2 MG/2 ML VIAL ONE (12:20)
[2017-03-01] MEDS ORDERED: SUFentanil 50 MCG/ML AMP ONE (12:20)
--- NOTE | 2017-03-01 12:20 | Operative Note ---
Date of procedure: 03/01/17 Pre-op diagnosis: Gastric mass Procedure: Procedure: Esophagogastroduodenoscopy Brief clinical abstract: 56-year-old male was admitted with upper GI bleeding. 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 He was taken to surgery today for laparoscopic assisted robotic resection of the tumor. Dr. Dunham asked that we do endoscopy to assist with this. Indication for procedure: Gastric mass Endoscopic findings:[After informed consent was obtained, the patient was placed in the left lateral decubitus position. The gastroscope was inserted in the upper esophagus under direct vision with no resistance encountered. Esophageal mucosa appeared normal with squamocolumnar junction sharply demarcated at the squamocolumnar junction. The endoscope was advanced in the stomach which was carefully examined including retroflexed view of the cardia and fundus. Submucosal mass was again seen in the proximal fundus of the stomach on the left and somewhat posterior. Estimated diameter this was 5-6 cm. Remainder the stomach appeared normal. The pyloric channel, duodenal bulb , second and third portion of the duodenum were normal. The endoscope was withdrawn back to the GE junction. Transillumination at the GE junction and the level of mass review used to assist Dr. Dunham with resection of the mass. Duration of the procedure was approximately 45 minutes. 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 Call if needed. Anesthesia: GETA Surgeon / Physician: Ted Castro Estimated blood loss: minimal Specimens: none sent Condition: stable Disposition: post procedure unit Results - Labs CBC & BMP: 03/01/17 04:45 02/28/17 14:59 Discharge Plan - Discharge Medications No Action No Known Home Medications [No Known Home Medications] - Follow Up or Referral - Forms/Instructions
--- NOTE | 2017-03-01 12:42 | Operative Note ---
Date of procedure: 03/01/17 Pre-op diagnosis: Bleeding gastric mass Post-op diagnosis: same Procedure: Preoperative diagnosis Bleeding gastric mass Postoperative diagnosis Same Procedures performed Robotic assisted laparoscopic partial gastrectomy Findings A gastric mass was found on the greater curvature posteriorly along the fundus of the stomach. Dr. Castro assisted with intraoperative endoscopy to ensure that the GE junction was not narrowed. The mass was excised with a wedge resection of the fundus of the stomach and a postoperative EGD revealed an intact staple line with no leaking and no active bleeding. The mass was opened on the back table of the operating room and there appeared to be a negative margin and the complete mass was removed. Surgeon Roly Hopkins Intra-operative Veterinary Livestock Inspector Dr. Steve Castro, gastroenterology Complications None apparent Specimen Gastric resection Blood loss 20 mL Anesthesia GETA Indications Bleeding gastric mass Description of procedure The patient was taken to the operating room and transferred to the operating table in the supine position. Pressure points were padded and SCDs were placed to lower extremities. General endotracheal anesthesia was administered. Both arms were tucked. Hidalgo catheter was already in place. Abdomen was prepped chlorhexidine and draped sterilely. Preoperative antibiotics were administered , and a timeout was performed. The abdomen was entered in a supraumbilical paramedian location on the left side with a Veress needle. An 8 mm skin incision was made with an 11 blade scalpel. Penetrating towel clips were used to grasp the abdominal wall skin and a Veress needle was used into the peritoneal cavity confirmed by double click technique. Aspiration was negative. Saline drop test confirmed intraperitoneal location. Abdomen was insufflated to 15 mmHg with an initial insufflation pressure of 2 mmHg. The Veress needle was removed and an 8 mm robotic trocar was placed blindly. The laparoscope was inserted and the patient was placed in reverse Trendelenburg position. Under direct visualization, and after the patient was positioned, 2 additional 8 mm right-sided trochars were placed and a 12 mm left sided abdominal trocar was placed as well as a 5 mm biology research assistant trocar. Diagnostic laparoscopy revealed no evidence of metastatic implants in the liver and the peritoneum. The robot was docked. I left the bedside and went to the control station of the robot. The liver retractor was placed with a dual blade retractor using the robotic arm. The lesser sac was entered by the omentum off of the greater curvature of the stomach with the vessel sealer device. The short gastrics were divided and the gastrosplenic ligament was taken down. A bougie was then placed through the GE junction and the mass was palpated along the fundus of the stomach posteriorly. This appeared to be consistently separate from the GE junction but to ensure that the GE junction would not be narrowed we consulted with Dr. Castro who came into the operating room to perform an intraoperative EGD. Stapler was then deployed while using intraoperative EGD to ensure that there was a good margin on the tumor and also that the GE junction was not narrowed. A green load stapling device was used to perform a wedge resection on the fundus of the stomach and the mass was completely excised in this manner. The specimen was placed in a Endo Catch retrieval bag and the robot was undocked. A post procedure EGD revealed that the staple line was intact and using a laparoscope to visualize a staple line there is no bubbling through the staple line. Staple line was hemostatic. The abdomen was locally suction irrigated and the robot was undocked and . I then left the control station and went back to the bedside. The mass was removed through the 12 mm trocar site after the trocar was removed and the fascial incision was extended to allow removal of the bag. The specimen was opened on the back table and there was good margins with complete removal of the mass. My gloves were then changed and I reentered the bedside portion of the procedure. CO2 was released from the abdomen and the trochars were released. The extraction incision was closed in 2 layers with 0 Vicryl suture on the posterior and anterior layer of the fascia. The skin incisions were then irrigated and closed with 4-0 Monocryl and sterile skin glue was applied. The patient was transferred back to the ICU on the ventilator. Postoperative plan Follow-up pathology NG tube to low intermittent suction Anesthesia: JUDITH Surgeon / Physician: Rodney Dunham [employer] Caregiver: Ascencion Hopkins Estimated blood loss: minimal Specimens: other (gastric resection) Condition: stable Disposition: ICU Results - Labs CBC & BMP: 03/01/17 04:45 02/28/17 14:59 Discharge Plan - Discharge Medications No Action No Known Home Medications [No Known Home Medications] - Follow Up or Referral - Forms/Instructions
[2017-03-01] MEDS ORDERED: MIDAZOLAM 10 MG/2 ML VIAL ONE (12:58)
[2017-03-01] MEDS ORDERED: SEVOFLURANE 1 UNIT/15 MINUTE INH ONE (12:58)
[2017-03-01] MEDS: HYDROmorphone 2 MG/1 ML VIAL IV PRN (14:52)
[2017-03-01] MEDS: PANTOPRAZOLE INJ 200 MG in SODIUM CHLORIDE 0.9% 250 ML IV SCH (20:26)
[2017-03-02] MEDS: HYDROmorphone 2 MG/1 ML VIAL IV PRN (03:11)
[2017-03-02] MEDS: PROPOFOL 1,000 MG/100 ML BOTTLE IV SCH (03:42)
[2017-03-02 05:58] LABS: Basophils % 0.3 % (0.0-0.8); Eosinophils # 0.2 10*3/uL (0.0-0.87); Eosinophils % 1.5 % (0.00-10.9); Hematocrit 36.6 VOL% (42.0-52.0); Hemoglobin 12.4 GM/DL (14.0-18.0); Immature Granulocytes % 0.6 %; Immature Granulocytes Absolute 0.07 #; Lymphocytes # 2.1 10*3/uL (1.4-4.0); Lymphocytes % 18.3 % (21.2-54.2); Mean Corpuscular HGB Conc 33.9 GM/DL (32-36); Mean Corpuscular Hemoglobin 30 PG (27-34); Mean Corpuscular Volume 88.8 FL (87-102); Mean Platelet Volume 10.2 FL (9.6-12.0); Monocytes # 0.9 10*3/uL (0.11-0.8); Neutrophils % 71.3 % (38.7-73.9); Platelet Count 278 T/CUMM (130-400); Red Blood Count 4.12 MC/CUMM (3.8-5.5); Red Cell Distribution Width 13.9 % (9.3-17.3); White Blood Count 11.2 T/CUMM (4-12)
[2017-03-02 06:27] LABS: Calcium 7.7 MG/DL (8.5-10.1); Osmolality,Calculated 288.6 MOS/KG (273-304); Potassium 3.6 MMOL/L (3.5-5.1)
--- NOTE | 2017-03-02 08:03 | Event Note ---
03/02/2017. Patient appears to be stable at this time chest x-ray looks clear. NG tube drainage little bloody but is clear and minimal in nature. Abdomen appears soft no drains are left at this time. Some distant bowel sounds may be present. Labs look good at this time with hematocrit of 36. Patient appears stable will maintain present support at this time.
--- NOTE | 2017-03-02 08:34 | Pulmonology Progress Note ---
Pulmonary - PN: Subj Interval history: This is a 56-year-old white male previously healthy man who started vomiting up blood while he was in his doctor's office waiting room. He had a stromal tumor of the stomach. He went to surgery on 03/01/2017 and did well. This morning he is awake and alert and his laboratory test are stable. I have started the patient on the weaning protocol and reevaluate a little later on we should be able to extubate him. Chest x-ray. My interpretation. Possible faint infiltrate near the left costophrenic angle. Endotracheal tube is in good position ABGs. Pending Lab. Reviewed. Physical exam. Vital signs. See below Psychiatric. Oriented 3 Neurologic. Cranial nerves are intact long track motor functions intact Face. Symmetrical. Lips and tongue are normal. Neck. Symmetrical no meningismus. Lymphatics no submandibular cervical supraclavicular or epitrochlear adenopathy Chest is clear Heart is regular Abdomen postsurgical Extremities nothing to suggest deep venous thrombophlebitis The remainder the physical exam is negative Plan. 1. Weaning protocol and probable extubate Exam (Progress Note) - Constitutional Vitals: Period Temp Pulse Resp BP Sys/Rueda Pulse Ox Last 24 Hr 98.6 F-98.7 F 55-68 13-21 95-157/61-91 96-100 Results - Labs CBC & BMP: 03/02/17 05:55 03/02/17 05:55
[2017-03-02 08:44] LABS: ABG Base Excess -3.2 MMOL/L (-2.5-2.5); ABG HCO3 20.6 MMOL/L (20-26); ABG Oxygen Saturation 95.2 % (95-100); ABG PCO2 33.2 MM HG (35-48); ABG PO2 75.1 MM HG (80-95); ABG TCO2 21.6 MMOL/L (23-27)
--- NOTE | 2017-03-02 11:03 | Hospitalist Progress Note ---
Assessment and Plan (1) Upper GI bleed Status: Acute Assessment and plan: Gastric tumor with visible bleeding vessel rescted yesterday. He has done very well post op and is now extubated. His H&h is stable, no sign of bleeding since EGD. UOP good. No anticoagulation for now, SCDs I have discussed PPI treatment with DR Dunham and will stop the infusion of protonix and go to once a day. He also suggests taking out the NGT and letting him start a clear liquid diet and advance as tolerated. To floor this afternoon if he does well today off vent. Current Visit: Yes (2) Hypovolemic shock Status: Resolved Current Visit: Yes (3) Acute respiratory failure Status: Acute Current Visit: Yes Hospitalist: Subjective Interval history: Mr Mac is doing very well this morning. He was extubated not long after I saw him on Ttube trial. If he continues to do well he can move to the floor today. No more GIB. Exam - Constitutional Vitals: Period Temp Pulse Resp BP Sys/Rueda Pulse Ox Last 24 Hr 98.6 F-98.7 F 55-75 13-21 95-157/61-91 98-100 General appearance: no acute distress, over weight - Eye Eye exam: Present: EOMI. Absent: scleral icterus - Respiratory Respiratory exam: Present: clear to auscultation bilaterally - Cardiovascular Cardiovascular exam: Present: regular rate and rhythm - GI/Abdominal GI/Abdominal exam: Present: hypoactive bowel sounds, soft - Extremities Exam Extremities exam: Absent: edema Results - Labs CBC & BMP: 03/02/17 05:55 03/02/17 05:55 Lab Results: I have reviewed the past 24 hour labs Quality Measures - VTE Contraindication to Pharmacological VTE Prophylaxis: Active Bleeding
[2017-03-02] MEDS: ALBUTEROL/IPRATROPIUM 3 ML NEB RESP TX SCH ×3 (11:24→20:37)
--- NOTE | 2017-03-02 13:42 | XRay Report ---
Exam: XR chest 1V portable Indication: Intubated, respiratory failure Comparison study: 03/01/2017 Findings: Endotracheal tube is in similar positions. Esophagogastric tube is noted within the proximal stomach. Cardiac silhouette is mildly enlarged, similar to prior. Minimal right hilar airspace opacities are noted. There is also minimal blunting of left costophrenic angle and left basilar airspace opacities which are slightly increased from the prior study. The upper lungs are predominantly clear. There is no pneumothorax. Osseous structures are stable. Impression: Slight worsening of right hilar and left basilar airspace opacities may represent developing infectious/inflammatory infiltrates. Soft tissue lesions are difficult to exclude. Continued follow-up is recommended until resolution. Stable position of endotracheal tube. Esophagogastric tube in position. PROCEDURE INTERPRETED AT [facility] DEPARTMENT OF RADIOLOGY Final Report Signed by: Palomo Rodriguez
[2017-03-02] MEDS: SODIUM CHLORIDE 0.9% 1,000 ML IV SCH ×4 (15:15→23:12)
[2017-03-03] MEDS ORDERED: traZODone 50 MG TABLET PO PRN (00:57)
[2017-03-03] MEDS: SODIUM CHLORIDE 0.9% 1,000 ML IV SCH ×3 (01:08→16:09)
[2017-03-03] MEDS: ALBUTEROL/IPRATROPIUM 3 ML NEB RESP TX SCH ×7 (01:12→23:30)
--- NOTE | 2017-03-03 08:56 | Anesthesia Post-Op ---
Anesthesia Post OP - Post Ansesthetic Evaluation Patient seen in post op: Yes Resp: within normal limits CV: within normal limits Mental: within normal limits Temp: within normal limits Ectr-Ev-Crrpoioua: within normal limits Nausea and Vomiting: within normal limits Pain: within normal limits
[2017-03-03] MEDS: PANTOPRAZOLE 40 MG TABLET PO SCH (09:37)
--- NOTE | 2017-03-03 09:50 | Hospitalist Progress Note ---
Assessment and Plan (1) Gastric tumor Status: Acute Assessment and plan: s/p resection 03/01/17 Surgery managing Current Visit: Yes (2) Hypovolemic shock Status: Resolved Current Visit: Yes (3) Upper GI bleed Status: Acute Assessment and plan: Counts have been stable Will check H/H today Current Visit: Yes (4) Acute respiratory failure Status: Resolved Current Visit: Yes Hospitalist: Subjective Interval history: No acute events overnight. Patient is having bowel movements. Pain is controlled. Tolerating a clear liquid diet. Exam - Constitutional Vitals: Period Temp Pulse Resp BP Sys/Rueda Pulse Ox Last 24 Hr 98.2 F-99.9 F 65-86 16-24 103-137/46-94 93-100 General appearance: over weight - Head Head exam: Present: normocephalic, atraumatic - Eye Eye exam: Present: EOMI Pupils: Present: DEANN - ENT ENT exam: Present: normal exam - Neck Neck exam: Present: normal inspection - Respiratory Respiratory exam: Present: clear to auscultation bilaterally - Cardiovascular Cardiovascular exam: Present: regular rate and rhythm - GI/Abdominal GI/Abdominal exam: Present: normal bowel sounds, soft. Absent: tenderness, rebound - Extremities Exam Extremities exam: Present: normal inspection - Back Exam Back exam: Present: normal inspection - Neurological Exam Neurological exam: Present: alert, oriented X3 - Psychiatric Psychiatric exam: Present: normal affect, normal mood - Skin Skin exam: Present: warm, intact Results - Labs CBC & BMP: 03/02/17 05:55 03/02/17 05:55 Quality Measures - VTE Contraindication to Pharmacological VTE Prophylaxis: Active Bleeding
[2017-03-03 10:20] LABS: Hematocrit 35.3 VOL% (42.0-52.0); Hemoglobin 12.1 GM/DL (14.0-18.0)
[2017-03-03] MEDS ORDERED: oxyCODONE/ACETAMINOPHEN 5-325 MG TABLET PO PRN (10:29)
--- NOTE | 2017-03-03 10:30 | Event Note ---
03/03/2017 Patient continues to do well sitting up in the chair at this time. Abdomen is soft there is good bowel sounds and is having some bowel movements at this point. Wounds look clean and dry. He is tolerating liquids fairly well but will move slow to get him on some solid food and to clear that there is no chance for any breakdown of the anastomosis.
--- NOTE | 2017-03-03 12:21 | Pulmonology Progress Note ---
Pulmonary - PN: Subj Interval history: This is a 56-year-old white male previously healthy man who started vomiting up blood while he was in his doctor's office waiting room. He had a stromal tumor of the stomach. He went to surgery on 03/01/2017 and did well. This morning he is awake and alert and his laboratory test are stable. I have started the patient on the weaning protocol and reevaluate a little later on we should be able to extubate him. Chest x-ray. My interpretation. Possible faint infiltrate near the left costophrenic angle. Endotracheal tube is in good position ABGs. Pending Lab. Reviewed. 03/03/2017. This patient was moved from ICU to the floor on 03/02/2017. He was seen along with his today. The patient has some syncope or near syncope episodes going back several years. These are not frequent. He has had a cardiology evaluation in the past. All of the ones she describes seem to be orthostatic. I have talked to him about precautions to take and I have told him if these seem to be independent of orthostatic changes he might want to repeat his cardiology evaluation and an consider an implantable monitor. His chest x-ray 03/02/2017, shows that the right lung is clear. There is a faint infiltrate near the left costophrenic angle and the patient also may have a cardiac apical fat pad. H&H is stable at 12.1/35.3. Labs been reviewed. Medicines have been reviewed. Patient was extubated on 03/02/2017 without problems. Physical exam. Vital signs. See below Psychiatric. Oriented 3 Neurologic. Cranial nerves are intact long track motor functions intact Face. Symmetrical. Lips and tongue are normal. Neck. Symmetrical no meningismus. Lymphatics no submandibular cervical supraclavicular or epitrochlear adenopathy Chest is clear Heart is regular Abdomen postsurgical Extremities nothing to suggest deep venous thrombophlebitis The remainder the physical exam is negative Plan. 03/02/2017. 1. Weaning protocol and probable extubate 03/03/2017. 1. See today's note above. 2. Orthostatic precautions. 3. Follow-up chest x-ray Exam (Progress Note) - Constitutional Vitals: Period Temp Pulse Resp BP Sys/Rueda Pulse Ox Last 24 Hr 98.2 F-99.9 F 67-86 16-23 95-137/54-94 93-99 Results - Labs CBC & BMP: 03/03/17 10:10 03/02/17 05:55
[2017-03-04] MEDS: SODIUM CHLORIDE 0.9% 1,000 ML IV SCH (00:19)
[2017-03-04] MEDS: ALBUTEROL/IPRATROPIUM 3 ML NEB RESP TX SCH ×3 (03:24→10:58)
[2017-03-04 06:12] LABS: Basophils # 0.1 10*3/uL (0.0-0.2); Basophils % 0.6 % (0.0-0.8); Eosinophils # 0.3 10*3/uL (0.0-0.87); Hematocrit 36.1 VOL% (42.0-52.0); Hemoglobin 12.2 GM/DL (14.0-18.0); Immature Granulocytes Absolute 0.09 #; Lymphocytes # 1.5 10*3/uL (1.4-4.0); Lymphocytes % 16.7 % (21.2-54.2); Mean Corpuscular HGB Conc 33.8 GM/DL (32-36); Mean Corpuscular Hemoglobin 30 PG (27-34); Mean Corpuscular Volume 88.5 FL (87-102); Mean Platelet Volume 10.9 FL (9.6-12.0); Monocytes # 0.9 10*3/uL (0.11-0.8); Monocytes % 10.2 % (1.7-12.7); Neutrophils # 6.1 10*3/uL (1.4-7.4); Neutrophils % 68.5 % (38.7-73.9); Platelet Count 256 T/CUMM (130-400); Red Blood Count 4.08 MC/CUMM (3.8-5.5); Red Cell Distribution Width 13.3 % (9.3-17.3); White Blood Count 8.9 T/CUMM (4-12)
[2017-03-04 06:39] LABS: Calcium 7.8 MG/DL (8.5-10.1); Magnesium 1.9 MG/DL (1.8-2.4); Osmolality,Calculated 286.6 MOS/KG (273-304); Potassium 3.2 MMOL/L (3.5-5.1)
[2017-03-04] MEDS ORDERED: POTASSIUM CHLORIDE 20 MEQ TABLET PO ONE (07:27)
--- NOTE | 2017-03-04 08:53 | General Surgery Progress Note ---
Assessment and Plan (1) Upper GI bleed Status: Acute Assessment and plan: The patient has recovered well from resection of gastric tumor. He appears ready to be discharged home. I am going to have the nurses discontinue the femoral central line that was placed by the ER team on admission and transition all of his medications over to p.o. I would be okay with him being discharged home today and I will arrange for follow-up in clinic a week from Saturday. We will continue p.o. pain medication as needed and Protonix for the next 2 weeks. Current Visit: Yes Subjective Patient reports: Present: no new complaints, feels better, pain is less, tolerating a regular diet, flatus, bowel movement, afebrile Narrative: The patient had an uneventful weekend. He was extubated on Saturday and began tolerating clear liquids. His diet was advanced to a soft diet which she has tolerated well with no fullness, nausea, or vomiting. His pain is well controlled. He is afebrile with normal vital signs. His labs are normal other than a low potassium at 3.2 and this was repleted today with 40 mEq of p.o. potassium chloride. Exam - Constitutional Vitals: Period Temp Pulse Resp BP Sys/Rueda Pulse Ox Last 24 Hr 98.1 F-99.4 F 60-89 18-20 95-136/65-82 93-99 General appearance: no acute distress, over weight - Head Head exam: Present: normal inspection, normocephalic - Eye Eye exam: Present: EOMI. Absent: scleral icterus Pupils: Present: DEANN - ENT ENT exam: Present: normal exam Mouth exam: Present: normal external inspection, normal voice - Neck Neck exam: Present: normal inspection, trachea midline - Respiratory Respiratory exam: Present: clear to auscultation bilaterally. Absent: accessory muscle use, chest wall tenderness - Cardiovascular Cardiovascular exam: Present: RRR. Absent: systolic murmur, tachycardia - GI/Abdominal GI/Abdominal exam: Present: normal bowel sounds, tenderness (There is minimal abdominal tenderness at the incisions but they are clean and dry with no evidence of infection, redness, or drainage.), soft - Extremities Exam Extremities exam: Present: normal inspection, normal capillary refill - Back Exam Back exam: Present: normal inspection - Neurological Exam Neurological exam: Present: alert, oriented X3 Speech: Present: normal - Skin Skin exam: Present: normal color, warm Results - Labs CBC & BMP: 03/04/17 05:18 03/04/17 05:18 - Diagnostic Findings Procedure: Chest x-ray: image reviewed by me (Chest x-ray is clear) Quality Measures - VTE Contraindication to Pharmacological VTE Prophylaxis: Active Bleeding Specialty Discharge - Follow Up or Referrals Follow up with: Rodney Dunham MD [Physician] - 03/13/17 - Speciality Discharge Instructions Surgery Instructions: It is okay to shower. Do not scrub the incision aggressively or submerge it under water. Do not drive or operate heavy machinery for at least 24 hours and after you are off of narcotic pain medications. No lifting over 15 pounds until I see you back in clinic.
[2017-03-04] MEDS: PANTOPRAZOLE 40 MG TABLET PO SCH (09:30)
--- NOTE | 2017-03-04 10:07 | XRay Report ---
XR chest 2V Indication: Possible left lower lung infiltrate Comparison: Chest x-ray dated March 02, 2017 Technique: Frontal and lateral views of the left lung Findings: Interval extubation. The cardiomediastinal silhouette is stable in configuration. Interval improved left basilar atelectasis/consolidation with minimal residual remaining. Visualized osseous and surrounding soft tissue structures appear grossly unchanged.. IMPRESSION: As above. PROCEDURE INTERPRETED AT [facility] DEPARTMENT OF RADIOLOGY Final Report Signed by: Dr Shmuel Pulido
--- NOTE | 2017-03-04 10:26 | Pulmonology Progress Note ---
Pulmonary - PN: Subj Interval history: This 56-year-old white male had a GI bleed. He was found to have a stromal tumor of the stomach which is been resected. I saw him for mechanical ventilation Saturday. He was extubated. He has now moved to the floor. Vital signs and labs are stable. I will sign off. Exam (Progress Note) - Constitutional Vitals: Period Temp Pulse Resp BP Sys/Rueda Pulse Ox Last 24 Hr 98.1 F-99.4 F 60-89 18-20 95-136/65-82 93-99 Exam: Patient's alert oriented vital signs normal. Pupils react light throat clear. Neck supple bruits. Chest clear equal breath sounds. Heart normal rate and rhythm no murmurs. Abdomen mildly tender bowel sounds present. Extremities no clubbing cyanosis edema. Calves nontender. Results - Labs CBC & BMP: 03/04/17 05:18 03/04/17 05:18 Lab Results: I have reviewed the past 24 hour labs - Diagnostic Findings Procedure: Chest x-ray: image reviewed by me (Essentially clear) Assessment and Plan (1) Acute respiratory failure Status: Resolved Assessment and plan: Presently on ventilator as he was intubated to protect his airway during his GI bleeding and endoscopy. He is going to surgery this morning. Will wean after surgery. Should be able to be weaned without difficulty. He does not have any known underlying heart or lung problems. 03/04/2017 this has resolved. Oxygen saturation normal on room air. Current Visit: Yes (2) Hypovolemic shock Status: Resolved Assessment and plan: This is been corrected with transfusions. This was due to GI bleeding from what appears to be a stromal tumor of the stomach 03/04/2017 this has resolved with transfusions. Current Visit: Yes (3) Upper GI bleed Status: Acute Assessment and plan: Hematocrit is 41 this morning. For gastric surgery today. 03/04/2017 status post resection of gastric tumor. Defer to GI service and surgery. Current Visit: Yes Specialty Discharge - Follow Up or Referrals Follow up with: Rodney Dunham MD [Physician] - 03/13/17 2:45 pm
--- NOTE | 2017-03-04 10:41 | Discharge Summary ---
<Jm Redmond - Last Filed: 03/04/17 10:32> Hospital Course - Hospital Course Hospital Course: This is a 56-year-old male that presented to the ED at [facility] on February 28, 2017 via EMS for evaluation of hypotension and syncope. The patient has no known medical or surgical history reported. Apparently the patient presented to his primary care physician for evaluation of cold and sinus symptoms 1 week. He was sitting in the waiting room preparing to be seen when he suddenly passed out. The episode was witnessed by the office staff who then in turn called 911 for emergency assistance. At the time of EMS arrival, the patient was noted to be diaphoretic in both hypotensive. Dopamine was started in route to support his blood pressure. Upon arrival to the ED, the patient had a large episode of bloody emesis. He was noted to be very lethargic and his hypotension persisted despite the use of dopamine. He was emergently intubated and placed on mechanical ventilation for airway protection. His was at bedside; she served as historian. His reported that the patient is normally very healthy, does not take any medications, and does not see a doctor on a regular basis. She reported that the patient had an onset of upper respiratory symptoms on last week. She reported that he attempted to self medicate himself using an over the counter agent, Mucinex. She reported that she saw him on this morning and that he told her that he was feeling slightly better. She reported that she encouraged him to seek medical attention , however at that time he refused. Shortly thereafter, she reported that that her called her at work and told her that he had changed his mind and that he would indeed go and see a doctor. She reported that she was actually speaking with him while he was in the doctor's appointment and that he was his normal state at that time. Shortly thereafter the syncopal episode, she was notified by the staff of her status and she came to the hospital.His denied any alcohol or illicit drug use. She denied any recent aspirin or products containing aspirin use. After brief discussion with Dr. Chatman and Dr. Levin, the patient was admitted to the hospitalist services for continuation of care. We will consult GI and pulmonary to assist during the clinical encounter. Shortly after presentation in the intensive care unit, the patient was evaluated by Dr. Castro; engineering aid. The patient underwent emergent EGD for evaluation and diagnostic purposes; which revealed gastric submucosal mass with visible vessel, located in proximal fundus appearance which was suggestive of stromal cell tumor. After diagnostic identification, a surgical consultation was requested. The patient was seen by Dr. Dunham. On March 01, 2017 , the patient underwent an uneventful robotic assisted laparoscopic partial gastrectomy. His condition improved and on March 02, 2017, the patient was extubated from mechanical ventilation. He was was transferred to the general medical surgical floor on March 03, 2017. His condition has greatly improved. He is tolerating p.o. feedings. His pain is well managed. He has had an uneventful night. Today, we feel that he is indeed appropriate for discharge to follow-up with his primary care physician, his surgeon Dr. Dunham, and his engineering aid Dr. Castro as indicated. Diagnosis - Discharge Diagnosis (1) Hypovolemic shock Status: Resolved (2) Upper GI bleed Status: Acute Specialty Discharge - Follow Up or Referrals Follow up with: Rodney Dunham MD [Physician] - 03/13/17 2:45 pm Discharge Plan - Discharge Data Disposition: Disch To Home/Self Care - Discharge Medications New Pantoprazole Tab [Protonix Tab] 40 mg PO DAILY #14 tablet Oxycodone HCl/Acetaminophen [Percocet 7.5-325 mg Tablet] 1 tablet PO Q6H PRN #30 tablet PRN Reason: Abdominal Pain - Follow Up or Referral Follow Up: Rodney Dunham MD [Physician] - 03/13/17 2:45 pm - Forms/Instructions Instructions: Laparoscopic Gastrectomy (DC) Exam - Constitutional Vitals: Period Temp Pulse Resp BP Sys/Rueda Pulse Ox Last 24 Hr 98.1 F-99.4 F 60-89 18-20 114-136/65-82 93-99 Discharge Results Procedures and tests throughout hospitalization: Pending Orders 02/28/17 14:34 Fresh Frozen Plasma Stat Red Blood Cells Leuko Red Routine Type and Screen Routine Labs on day of discharge: Labs from last 24 hours 03/04/17 03/04/17 05:18 05:18 WBC 8.9 RBC 4.08 Hgb 12.2 L Hct 36.1 L MCV 88.5 MCH 30 MCHC 33.8 RDW 13.3 Plt Count 256 MPV 10.9 Neut % (Auto) 68.5 Lymph % (Auto) 16.7 L Gonzales % (Auto) 10.2 Eos % (Auto) 3.0 Baso % (Auto) 0.6 Neut # (Auto) 6.1 Lymph # (Auto) 1.5 Gonzales # (Auto) 0.9 H Eos # (Auto) 0.3 Baso # (Auto) 0.1 Immature Gran % 1.0 Nucleated RBC % 0.0 Immature Gran # 0.09 Nucleated RBCs # 0.00 Sodium 146 H Potassium 3.2 L Chloride 110 H Carbon Dioxide 24 Anion Gap 15.2 H BUN 4 L Creatinine 0.80 GFR Calculation 134 BUN/Creatinine Ratio 5.00 L Glucose 92 Calculated Osmolality 286.6 Calcium 7.8 L Magnesium 1.9 DS: Provider Date of admission: 02/28/17 15:15 Primary care physician: . No PCP Attending physician on admission: Louise Levin MD Consults: 02/28/17 15:57 Consult to Physician [CONS] Routine Comment: Consulting Provider: Romario Cartagena When should Consulting Provider be notified: Now 02/28/17 16:50 Consult to Physician [CONS] Routine Comment: Consulting Provider: Gricelda Castro When should Consulting Provider be notified: Now 02/28/17 17:44 Consult to Physician [CONS] Routine Comment: UGI bleed, gastric mass Consulting Provider: Rodney Dunham Consulting Provider Notified: Yes 02/28/17 18:59 Consult to Anesthesiology [CONS] Routine Consulting Provider: Reason for Anesthesiology: Pre-op Clearance Discharging clinician: Jm Redmond CNP <Geeta Townsend - Last Filed: 03/04/17 11:34> Hospital Course - Time spent with patient Time with patient DS: Less than 30 minutes Diagnosis - Discharge Diagnosis (1) Gastric tumor Status: Resolved (2) Hypovolemic shock Status: Resolved (3) Upper GI bleed Status: Resolved (4) Acute respiratory failure Status: Resolved Discharge Plan - Discharge Data Condition at Discharge: Stable Activity: increase activity as tolerated Weight Bearing at Discharge: partial weight bearing Contact your physician if you experience:: fever over 101, Nausea/Vomiting, pain uncontrolled by pain medications Exam - Constitutional General appearance: over weight - Head Head exam: Present: normocephalic, atraumatic - Eye Eye exam: Present: EOMI Pupils: Present: DEANN - ENT ENT exam: Present: normal exam - Neck Neck exam: Present: normal inspection - Respiratory Respiratory exam: Present: clear to auscultation bilaterally. Absent: rhonchi, wheezes - Cardiovascular Cardiovascular exam: Present: regular rate and rhythm - GI/Abdominal GI/Abdominal exam: Present: normal bowel sounds, soft. Absent: tenderness, rebound - Extremities Exam Extremities exam: Present: normal inspection - Back Exam Back exam: Present: normal inspection - Neurological Exam Neurological exam: Present: alert, oriented X3 - Psychiatric Psychiatric exam: Present: normal affect, normal mood - Skin Skin exam: Present: warm, intact
[2017-03-04 11:35] VITALS: BP 132/80
--- NOTE | 2017-03-04 16:17 | Pathology Report from [facility] ---
[facility] [place] : [id number] PATIENT NAME : Beni Leos ORDERING DR : Rodney Dunham MD CLINICAL HX: GI Bleed POST-OP DX: Same SPECIMEN INFO: Gastric resection GROSS DESCRIPTION: The specimen is received in formalin labeled BENI LEOS and is a portion of stomach tissue measuring 6.8 x 11.5 cm. The specimen is received opened revealing a raised submucosal mass measuring 6.0 x 4.8 x 3.0 cm. The mass extends near the adjacent stapled margin. The serosa opposite the mass is shaggy and thin. The mucosal surface overlying the mass displays a few scattered areas of ulceration. The cut surfaces of the mass is soft and friable. Sections: A surgical margin, B- F mass, G and H serosa opposite mass. DIAGNOSIS FOR BENI LEOS: STOMACH, PARTIAL RESECTION (Intact 11.5 x 6.8 cm): TYPE: Gastrointestinal Stromal Tumor, Spindle subtype. SITE: Stomach, outer half muscularis propria with serosal rupture but no direct serosal extension. SIZE: 6.0 x 4.8 cm. FOCALITY: Unifocal. MARGINS: Uninvolved by tumor with closest margin (gastric wall) = 3 mm. MITOTIC RATE: 5 MF/ 5 mm2. GRADE: Low grade (< or =5 MF/ 5 mm2). NECROSIS: Present, <2% of tumor. MUCOSAL INFILTRATION: Absent. RISK OF PROGRESSIVE DISEASE: Low. IHC STUDIES: KIT (CD117): Positive; DOG1: Positive. PRERESECTION TREATMENT: No prior therapy. ADDITIONAL FINDINGS: Gastric ulcers (2). AJCC PATHOLOGIC STAGE IB ( pT3pN0) COLLECTED DATE: 03/03/2017 [facility] REPORT DATE: 03/04/2017 ELECTRONICALLY SIGNED BY: Tera Aguayo M.D. 03/04/2017 - 13:32:14 [facility]
--- NOTE | 2017-03-25 07:59 | Physician Query Form ---
CLICK EDIT DOCUMENT TO SELECT QUERY ANSWER --> OK --> SIGN Yvonne Holguin RN, CCDS Certified Clinical Shoe Designer W) [phone] (f) [phone] [email or web address] PROVIDERS: Make your selection(s) from the choices in EACH section by typing an "x" and enter comments in the comment section. Please use your independent medical judgment in providing your response. This request does not imply that any particular answer is desired or expected. CLINICAL INDICATORS: (Providers should not edit this section) The medical record indicates that the patient was admitted with massive upper GI bleeding, intubated in the ER, "emergently intubated and placed on mechanical ventilation for airway protection", later respiratory failure is mentioned. Based on the above, could you clarify the appropriate diagnosis, if significant , that supports the above abnormalities and additional evaluation, monitoring, and/or treatment rendered: ( ) Intubation for airway protection ( ) Intubation for respiratory failure ( ) Intubation for airway protection and respiratory failure ( ) Other, please specify: ( ) Clinically unable to determine COMMENTS: I do not know this patient. PLEASE ALSO DOCUMENT RESPONSE IN PROGRESS NOTES AND/OR DISCHARGE SUMMARY Use of terms such as suspected, likely, or probable (associated with a specific diagnosis that is being evaluated, monitored, or treated as if it exists) are acceptable and can be restated in the discharge summary if not ruled out. MTDD
--- NOTE | 2017-03-26 07:18 | Physician Query Form ---
CLICK EDIT DOCUMENT TO SELECT QUERY ANSWER --> OK --> SIGN Yvonne Holguin RN, CCDS Certified Clinical Boiler Plant Worker W) [phone] (f) [phone] [email or web address] PROVIDERS: Make your selection(s) from the choices in EACH section by typing an "x" and enter comments in the comment section. Please use your independent medical judgment in providing your response. This request does not imply that any particular answer is desired or expected. CLINICAL INDICATORS: (Providers should not edit this section) The medical record indicates that the patient was admitted with massive upper GI bleeding, intubated in the ER, "emergently intubated and placed on mechanical ventilation for airway protection", later respiratory failure is mentioned. Based on the above, could you clarify the appropriate diagnosis, if significant , that supports the above abnormalities and additional evaluation, monitoring, and/or treatment rendered: (x ) Intubation for airway protection ( ) Intubation for respiratory failure ( ) Intubation for airway protection and respiratory failure ( ) Other, please specify: ( ) Clinically unable to determine COMMENTS: PLEASE ALSO DOCUMENT RESPONSE IN PROGRESS NOTES AND/OR DISCHARGE SUMMARY Use of terms such as suspected, likely, or probable (associated with a specific diagnosis that is being evaluated, monitored, or treated as if it exists) are acceptable and can be restated in the discharge summary if not ruled out. MTDD
== END 2017-03-04 15:20 | disposition home or self-care (01) | DRG 564 ==
LOC: EDBD → EDUNIT# → N.ED 14:18 → N.EDINP 15:15 → SUATTDRO 15:15 → N.CC 16:05 → N.3E 03-02 16:12
PROVIDERS: ADMIT Internal Medicine; ATTEND Internal Medicine

== ENCOUNTER 2019-02-06 09:19 | Inpatient (IN) ==
[2019-02-06] MEDS ORDERED: PANTOPRAZOLE 40 MG VIAL IV STA (09:55)
[2019-02-06] MEDS ORDERED: ALUM/MAG/SIMETH/LIDO VISC 1:1 30 ML BOTTLE PO STA (09:55)
[2019-02-06 10:21] LABS: Basophils % 0.3 % (0.0-0.8); Eosinophils % 0.2 % (0.00-10.9); Hematocrit 47.7 VOL% (42.0-52.0); Hemoglobin 15.6 GM/DL (14.0-18.0); Immature Granulocytes % 0.6 %; Immature Granulocytes Absolute 0.06 #; Lymphocytes # 1.3 10*3/uL (1.4-4.0); Lymphocytes % 12.5 % (21.2-54.2); Mean Corpuscular HGB Conc 32.7 GM/DL (32-36); Mean Corpuscular Volume 91.7 FL (87-102); Mean Platelet Volume 9.2 FL (9.6-12.0); Monocytes % 5.2 % (1.7-12.7); Neutrophils % 81.2 % (38.7-73.9); Platelet Count 370 T/CUMM (130-400); Red Cell Distribution Width 12.4 % (9.3-17.3); White Blood Count 10.5 T/CUMM (4-12)
[2019-02-06 10:43] LABS: Alanine Aminotransferase 24 U/L (16-61); Alkaline Phosphatase 51 U/L (45-117); Amylase 76 U/L (25-115); Aspartate Amino Transferase 22 U/L (0-37); Blood Urea Nitrogen 11 MG/DL (7-18); Calcium 9.3 MG/DL (8.5-10.1); Glucose 128 MG/DL (74-106); INR 0.9; Osmolality,Calculated 277.5 MOS/KG (273-304); PT Patient Result 9.9 SECS; Partial Thromboplastin Time 26.4 SECS (0-40); Total Protein 7.1 G/DL (6.4-8.3); Troponin I < 0.015 NG/ML (0.00-0.045)
[2019-02-06] MEDS ORDERED: ONDANSETRON 4 MG/2 ML VIAL IV STA (13:35)
[2019-02-06] MEDS ORDERED: MORPHINE 4 MG/1 ML VIAL IV STA (13:35)
[2019-02-06] MEDS ORDERED: NALOXONE 0.4 MG/ML VIAL ONE (13:48)
[2019-02-06] MEDS ORDERED: SODIUM CHLORIDE 0.9% 1,000 ML IV STA (13:53)
[2019-02-06] MEDS ORDERED: DOCUSATE SODIUM 100 MG CAPSULE PO PRN (14:08)
[2019-02-06] MEDS ORDERED: ACETAMINOPHEN 325 MG TABLET PO PRN (14:08)
[2019-02-06] MEDS ORDERED: ENOXAPARIN 40 MG/0.4 ML SYRINGE SUBCUT SCH (14:30)
[2019-02-06 15:14] LABS: Risk Ratio 3.39; Thyroid Stimulating Hormone 1.27 uIU/ml (0.358-3.74); VLDL CHOLESTEROL 17.2 MG/DL
[2019-02-06] MEDS ORDERED: ONDANSETRON 4 MG/2 ML VIAL IV PRN (15:27)
[2019-02-06] MEDS: SODIUM CHLORIDE 0.9% 1,000 ML IV SCH (16:37)
[2019-02-06 18:07] LABS: Apearance,Urine CLEAR (Clear); Bilirubin,Urine Negative (Negative); Blood, Urine Moderate mg/dL (Negative); Glucose,Urine (UA) Negative (Negative); Ketones,Urine 20 mg/dL (Negative); Mucus,Urine Occasional /LPF (Occasional); Nitrite,Urine Negative (Negative); Protein,Urine Negative; RBC,Urine 12 /HPF (0-4); Urine Color Yellow (Yellow); Urine Specific Gravity 1.021 (1.001-1.035); Urine Urobilinogen < 2.0 EU/DL (0.2-1.0); WBC,Urine 1 /HPF (0-6)
[2019-02-07 05:00] LABS: Basophils % 0.4 % (0.0-0.8); Eosinophils # 0.2 10*3/uL (0.0-0.87); Eosinophils % 1.5 % (0.00-10.9); Hematocrit 42.2 VOL% (42.0-52.0); Hemoglobin 13.7 GM/DL (14.0-18.0); Immature Granulocytes % 0.6 %; Immature Granulocytes Absolute 0.06 #; Lymphocytes # 2.5 10*3/uL (1.4-4.0); Mean Corpuscular HGB Conc 32.5 GM/DL (32-36); Mean Corpuscular Volume 92.5 FL (87-102); Mean Platelet Volume 9.3 FL (9.6-12.0); Monocytes % 12.4 % (1.7-12.7); Neutrophils % 61.1 % (38.7-73.9); Platelet Count 329 T/CUMM (130-400); Red Blood Count 4.56 MC/CUMM (3.8-5.5); Red Cell Distribution Width 12.6 % (9.3-17.3); White Blood Count 10.4 T/CUMM (4-12)
[2019-02-07 05:23] LABS: Calcium 8.4 MG/DL (8.5-10.1); Osmolality,Calculated 278.3 MOS/KG (273-304)
[2019-02-07] MEDS: MULTIVITAMIN (CENTRUM) TABLET PO SCH (08:09)
[2019-02-07] MEDS ORDERED: PANTOPRAZOLE 40 MG VIAL IV SCH ×2 (09:00)
[2019-02-07] MEDS ORDERED: LIDOCAINE 1%/EPI INJ 20 ML VIAL ONE (09:45)
[2019-02-07] MEDS ORDERED: ceFAZolin 1,000 MG VIAL ONE (10:02)
[2019-02-07] MEDS ORDERED: TISSUE ADHESIVE 1 EACH APPLICATOR TOP ONE (10:16)
[2019-02-07] MEDS ORDERED: fentaNYL 100 MCG/2 ML VIAL ONE (11:19)
[2019-02-07] MEDS ORDERED: PROPOFOL 200 MG/20 ML VIAL IV ONE (11:19)
[2019-02-07] MEDS ORDERED: KETOROLAC 30 MG/1 ML VIAL ONE (11:20)
[2019-02-07] MEDS ORDERED: SEVOFLURANE 1 UNIT/15 MINUTE INH ONE (11:20)
[2019-02-07] MEDS ORDERED: ONDANSETRON 4 MG/2 ML VIAL ONE ×2 (11:20→11:29)
[2019-02-07] MEDS ORDERED: GLYCOPYRROLATE 0.4 MG/2 ML VIAL ONE (11:20)
[2019-02-07] MEDS ORDERED: NEOSTIGMINE 10 MG/10 ML VIAL ONE (11:20)
[2019-02-07] MEDS ORDERED: LACTATED RINGERS 1,000 ML IV ONE (11:20)
[2019-02-07] MEDS ORDERED: DEXAMETHASONE 4 MG/1 ML VIAL ONE (11:20)
[2019-02-07] MEDS ORDERED: ROCURONIUM 100 MG/10 ML VIAL IV ONE (11:22)
[2019-02-07] MEDS ORDERED: ONDANSETRON 4 MG/2 ML VIAL IV PRN (11:33)
[2019-02-07 12:28] LABS: Hematocrit 44.9 VOL% (42.0-52.0); Hemoglobin 14.6 GM/DL (14.0-18.0)
[2019-02-07] MEDS: ceFAZolin 2,000 MG in PREMIX 1 EACH IV SCH (17:30)
[2019-02-07] MEDS: PANTOPRAZOLE 40 MG VIAL IV SCH (20:14)
[2019-02-07 20:18] LABS: Hematocrit 41.6 VOL% (42.0-52.0); Hemoglobin 13.7 GM/DL (14.0-18.0)
[2019-02-07] MEDS: SODIUM CHLORIDE 0.9% 1,000 ML IV SCH (22:39)
[2019-02-08] MEDS: ceFAZolin 2,000 MG in PREMIX 1 EACH IV SCH (02:22)
[2019-02-08 05:52] LABS: Basophils % 0.3 % (0.0-0.8); Eosinophils # 0.1 10*3/uL (0.0-0.87); Eosinophils % 0.9 % (0.00-10.9); Hematocrit 38.9 VOL% (42.0-52.0); Hemoglobin 12.8 GM/DL (14.0-18.0); Immature Granulocytes % 0.6 %; Immature Granulocytes Absolute 0.07 #; Lymphocytes # 2.4 10*3/uL (1.4-4.0); Lymphocytes % 21.2 % (21.2-54.2); Mean Corpuscular HGB Conc 32.9 GM/DL (32-36); Mean Corpuscular Volume 92.6 FL (87-102); Mean Platelet Volume 10.1 FL (9.6-12.0); Monocytes % 10.7 % (1.7-12.7); Neutrophils % 66.3 % (38.7-73.9); Platelet Count 318 T/CUMM (130-400); Red Cell Distribution Width 12.7 % (9.3-17.3); White Blood Count 11.4 T/CUMM (4-12)
[2019-02-08 05:53] LABS: Hematocrit 38.9 VOL% (42.0-52.0); Hemoglobin 12.8 GM/DL (14.0-18.0)
[2019-02-08 06:16] LABS: Calcium 8.8 MG/DL (8.5-10.1); Osmolality,Calculated 277.4 MOS/KG (273-304)
[2019-02-08] MEDS ORDERED: POTASSIUM CHLORIDE 20 MEQ TABLET PO ONE (06:37)
[2019-02-08] MEDS: MULTIVITAMIN (CENTRUM) TABLET PO SCH (08:12)
[2019-02-08] MEDS: PANTOPRAZOLE 40 MG VIAL IV SCH (08:13)
[2019-02-08] MEDS: SODIUM CHLORIDE 0.9% 1,000 ML IV SCH (11:40)
[2019-02-08 12:51] VITALS: BP 128/76
== END 2019-02-08 13:15 | disposition home or self-care (01) | DRG 419 ==
LOC: N.ED 09:19 → N.EDINP 14:08 → N.TELES 18:45
PROVIDERS: ADMIT Internal Medicine; ATTEND Internal Medicine
PROC: LAPCHOL (2019-02-07 09:41)